=== PATIENT | female | born 1965 | race Caucasian/White ===

== ENCOUNTER 2016-07-15 08:01 | Day surgery (SDC) | payer OTHER ==
[~2016-07-15] VITALS: Ht 170.2 cm; Wt 54.0 kg
[~2016-07-15 08:01] MED LIST: LACTATED RINGERS 1,000 ML IV SCH; SODIUM CHLORIDE FLUSH 3 ML SYR IV PRN
[2016-07-15 08:08] VITALS: BP 117/79
[2016-07-15] MEDS ORDERED: MIDAZOLAM 2 MG/2 ML (VERSED) VIAL ONE (09:36)
[2016-07-15] MEDS ORDERED: PROPOFOL 20 ML IV ONE (09:36)
[2016-07-15] MEDS ORDERED: ALFENTANIL 500 MCG/ML (ALFENTA) 5 ML AMP IV ONE (09:36)
[2016-07-15] MEDS ORDERED: ONDANSETRON 2 MG/ML (Z0FRAN) 2 ML VIAL ONE (09:55)
[2016-07-15 10:11] VITALS: BP 130/53
[2016-07-15 10:30] VITALS: BP 114/66
== END 2016-07-15 10:33 | disposition home or self-care (01) ==
LOC: ASC 08:01
PROVIDERS: ATTEND Surgery
DX: Z12.11 Encounter for screening for malignant neoplasm of colon (principal); K57.30 Diverticulosis of large intestine without perforation or abscess without bleeding
CPT/HCPCS: 45378; J2250; J2405; J7120